=== PATIENT | male | born 1995 | race Caucasian/White ===

== ENCOUNTER 2017-12-21 13:20 | Emergency (ER) | payer OTHER ==
[~2017-12-21] VITALS: Ht 200.7 cm; Wt 119.1 kg
[2017-12-21] MEDS ORDERED: CHLORPROMAZINE200 MG PO (13:41)
[2017-12-21] MEDS ORDERED: CHLORPROMAZINE100 MG PO (13:41)
[2017-12-21] MEDS ORDERED: PROZAC40 MG PO (13:41)
[2017-12-21] MEDS ORDERED: ABILIFY MAINTE400 M1 IM (13:42)
== END 2017-12-21 15:01 | disposition home or self-care (01) ==
LOC: ED 13:20
DX: S63.044A Dislocation of carpometacarpal joint of right thumb, initial encounter (principal); S60.221A Contusion of right hand, initial encounter; J45.909 Unspecified asthma, uncomplicated; Z79.899 Other long term (current) drug therapy; W22.8XXA Striking against or struck by other objects, initial encounter
CPT/HCPCS: 73130; 99283

== ENCOUNTER 2019-08-27 05:35 | Day surgery (SDC) | payer OTHER ==
[~2019-08-27] VITALS: Ht 205.7 cm; Wt 136.1 kg
--- NOTE | ~2019-08-27 | OR ---
[facility] [address], [place] [address] Draft DATE OF OPERATION: 08/27/2019 SURGEON: Jack Washburn MD PREOPERATIVE DIAGNOSIS: Chronic dislocation carpometacarpal joint, right thumb. POSTOPERATIVE DIAGNOSIS: Chronic dislocation carpometacarpal joint, right thumb. PROCEDURE PERFORMED: CMC arthroplasty, right thumb. ANESTHESIA: General. SPECIMENS AND COMPLICATIONS: There were no specimens or complications. TOURNIQUET TIME: About 80 minutes. WHAT WAS DONE: The patient was taken to the operating room. After anesthesia was induced and airway secured, the right upper extremity was positioned, prepped and draped in a routine sterile fashion. A time-out was performed and after the successful completion of the time-out, the arm was exsanguinated with an Esmarch bandage. Pneumatic tourniquet about the upper arm was inflated to 250 mmHg pressure. We then made a slightly dorsal ulnar incision over the base of the thumb metacarpal because of its dislocated position. Skin was divided sharply. Subcutaneous tissue was bluntly spread. The radial artery was identified and gently retracted. We then used a #15 blade to open up the metacarpotrapezial joint. We then exposed the trapezium with sharp and blunt dissection and then removed it in a piecemeal fashion. Once we had removed the trapezium, the remaining articular surfaces appeared pristine. We then held the thumb in the corrected position. We made a small additional since incision on the radial aspect of the thumb at the base of the thumb metacarpal and through it, drilled the 1.1 guidewire for the mini TightRope. We checked position on both AP and lateral fluoroscopy and were happy with position in the thumb metacarpal. We then continued the guidewire through the base of the index metacarpal and allowed it to exit slightly dorsal ulnarly in the space between the 2nd and 3rd metacarpal. We then made a small incision around this and PATIENT NAME: ELIAN SORENSON OPERATIVE REPORT DATE OF : 89 REPORT #: [id number] PHYSICIAN: JACK WASHBURN MD PCP: NO PRIMARY CARE PHYSICIAN REPORT IS CONFIDENTIAL AND NOT TO BE RELEASED WITHOUT AUTHORIZATION [facility] [address], [place] [address] Draft carried it down to the bone to ensure that there was no compromise of the extensor tendon or any neurovascular issues. Once we were happy with the alignment and position of the guidewire, we used it to deliver the mini TightRope across the thumb metacarpal into the index metacarpal. We snugged it down to the bone through the radial incision at the base of the thumb metacarpal and ascertain its position fluoroscopically. We then gently tightened it, but not over tightened it and secured it with the other TightRope on the ulnar aspect of the index metacarpal. This gave us good alignment, good position, and excellent sabianism of the length. We then made two small transverse incisions and harvested a portion of the flexor carpi radialis tendon as there was no identifiable palmaris longus tendon. The flexor carpi radialis tendon was then turned into an anchovy with interrupted sutures of 2-0 FiberWire and was then placed in the void left by the excision of the trapezium. We then closed the capsule over the "anchovy" with interrupted sutures of 2-0 FiberWire. The remaining incisions were gently irrigated and closed. Local anesthetic was instilled around the incisions and the patient was placed in a bulky hand dressing along with a splint to hold the thumb in slight abduction and an extended position. Pneumatic tourniquet was released, and the fingers became pink and warm with a quick rapid capillary refill. The patient was awakened and taken to the recovery room and arrived in stable condition. Counts were correct and antibiotic protocols were followed. Jack Washburn MD WFB/MODL /[id number] Copies: ~ PATIENT NAME: ELIAN SORENSON OPERATIVE REPORT DATE OF : [birth year] REPORT #: [id number] PHYSICIAN: JACK WASHBURN MD PCP: NO PRIMARY CARE PHYSICIAN REPORT IS CONFIDENTIAL AND NOT TO BE RELEASED WITHOUT AUTHORIZATION
[~2019-08-27 05:35] MED LIST: ABILIFY MAINTE400 M1 IM; CHLORPROMAZINE100 MG PO; CHLORPROMAZINE200 MG PO; NAPROSYN500 MG PO; PROZAC40 MG PO; TUMS300 MG PO
--- NOTE | 2019-08-27 10:23 | NUR ---
08/27/19 1023 Alyssa Payne 1008 PT ARRIVED IN PACU NON RESPONSIVE TO NOXIOUS STIMULI WITH OPA IN PLACE. CHIN LIFT HELD BY RN. R ARM ELEVATED ON PILLOW.
[2019-08-27] MEDS ORDERED: NORCO 5-325 TA1 EACH PO (10:34)
--- NOTE | 2019-08-27 10:56 | NUR ---
PT IS BACK TO DS FROM PACU. PT IS TOLERATING SIPS OF MT. DEW. HE IS AGREEABLE TO TRYING CHIO CRACKERS. PT CAREGIVER AT BEDSIDE. CALL LIGHT WITHIN REACH. NO ADDITIONAL NEEDS AT THIS TIME.
--- NOTE | 2019-08-27 11:43 | NUR ---
UPON ENTERING ROOM TO CHECK ON PT, HE HAS SCOOTED HIMSELF OFF THE EDGE OF HIS BED AND IS STANDING WITH HIS HAND ON THE ARM RAIL, SWAYING. PT IS INSTRUCTED TO SIT BACK DOWN. HE STATES THAT HE IS STANDING SO HE CAN WAKE UP. HE IS EDUCATED THAT WITH THE MEDICATION HE GOT DURING SURGERY HE IS GOING TO FEEL SLEEPY AND NOT HAVE THE GREATEST BALANCE TODAY. CAREGIVER IS BACK IN THE ROOM. PT IS AGREEABLE TO STAY SEATED SO HE DOES NOT FALL. THIS CONVERSATION GOES ROUNDS FOR ABOUT 5 MINUTES.
--- NOTE | 2019-08-27 12:26 | NUR ---
PT AND CAREGIVER ARE GIVEN VERBAL DC INSTRUCTIONS, CAREGIVER VERBALIZES UNDERSTANDING. QUESTIONS ARE ANSWERED. PT IS TAKEN TO VEHICLE VIA WC BY VOLUNTEER.
--- NOTE | 2019-08-27 15:04 | NUR ---
CALVIN VILLANUEVA REQUESTED THAT I NOT VISIT PT. HE IS VERY AGGITAED AND SHE IS AFRAIND I MIGHT SEND PT OVER THE EDGE. WILL FOLLOW NEEDED
== END 2019-08-27 12:15 | disposition home or self-care (01) ==
LOC: OPS 05:35 → DS 05:35 → OPS 06:45 → DS 06:45 → OPS 12:15
PROVIDERS: Orthopaedic Surgery
PROC: 0RQS0ZZ Repair Right Carpometacarpal Joint, Open Approach (ICD-10-PCS; principal; 2019-08-27 06:45)
DX: M24.441 Recurrent dislocation, right hand (principal); F43.10 Post-traumatic stress disorder, unspecified; F84.0 Autistic disorder; K21.9 Gastro-esophageal reflux disease without esophagitis; G43.909 Migraine, unspecified, not intractable, without status migrainosus; F41.9 Anxiety disorder, unspecified; F32.9 Major depressive disorder, single episode, unspecified; J45.909 Unspecified asthma, uncomplicated; Z79.899 Other long term (current) drug therapy
CPT/HCPCS: 73140; C1713; J0690; J1100; J1885; J2405; J2704; J3010; J7121

== ENCOUNTER 2019-08-29 19:56 | Emergency (ER) | payer OTHER ==
[~2019-08-29] VITALS: Ht 205.7 cm; Wt 136.1 kg
--- OUTSIDE RECORDS SUMMARY | ~2019-08-29 | XMS ---
Demographics + + + | Address | [address] | | | [place] [address] | + + + | Home Phone | | + + + | Preferred Language | Unknown | + + + | Marital Status | S | + + + | Temple Affiliation | Unknown | + + + | Race | White | + + + | Ethnic Group | Not or | + + + Author + + + | Author | [facility] | + + + | Organization | [facility] | + + + | Address | [address] | | | [place] [address] | + + + | Phone | Unavailable | + + + Care Team Providers + + + + | Care Swing Tender Name | Role | Phone | + + + + Unavailable | Unavailable | + + + + Reason for Visit + + + | Reason For Visit Description | Start Date | + + + | General Notes | | + + + | | Chief Complaint: er f/u suicidal ideation | | | HPI Acute Pt is here today with | | | caregiver for er f/u 12/09/2015 suicidal | | | ideation- please read chart notes from | | | 12/09/2015 and chart note from DAVID | | | 12/10/2015. | | | .......................................... | | | .........................Dalila Lou | | | CCMA December 16, 2015 2:47 PM Pt | | | reports boredom and idle speculation about | | | killing himself. He enjoys thinking | | | about it. He does not have an active plan | | | but is quite ready to elaborat on a | | | number of ways that he thinks he could do | | | it if he decided to. Social | | | History Occupation: disabled Lives With: | | | professional care givers Lives At: | | | assisted Marital Status: single | | | Primary Language: Jordanian Use of Jordanian | | | Language: Fluent Review of Systems | | | General: No F/C/N/V. No ARENAS or visual | | | changes. No CP/SOB/KATZ/PND. No cough or | | | wheezing. Appetite is normal. No | | | unexpected wt gain/loss. Bowel function | | | normal with no diarrhea, constipation, | | | BRBPR, melena, or cramping. No | | | dysuria,frequency, incontinence, | | | hesitation, dribbling. No heat/cold | | | intolerance. Energy levels normal. No | | | rashes, bruising, or skin lesions. No | | | focal neurologic deficits, parasthesias, | | | changes in mentation or memory. | | | Psychiatric: History reveals positive for | | | anhedonia, suicidal ideation. Risk | | | Factors Tobacco Use: never smoker | | | Alcohol Use:never Drug Use: none Other | | | Risk Factors Caffeine use (drinks/day): 0 | | | Sun exposure: occasionally HX of MRSA: | | | No HIV high risk behavior: No | | | Nurse Intake Height: 79.5in. | | | Weight: 211 lbs. Pulse: 95(regular) | | | BMI: 23.56 Wt ch Pulse Oximetry: | | | O2 sat. at rest is 97% on RA BP #1: | | | 128/74 Position:sitting Site:left arm | | | Vitals entered by: Dalila Lou [facility] on | | | December 16, 2015 2:44 PM Health Risk | | | Screening 1. Do you now or have you ever | | | used tobacco? Never 2. How many times in | | | the past year have you had 5 or more | | | drinks in a day? | | | None 3. Do you | | | sometimes use drugs recreationally, | | | including marijuana without a Medical | | | Marijuana Card, or prescription drugs more | | | than they are prescribed for or just for | | | the way they make you feel? None In the | | | last two weeks have you been bothered by: | | | 4. A). Little interest or pleasure in | | | doing things? No B). Feeling down, | | | depressed or hopeless? No Physical | | | Exam General: Well developed, well | | | nourished, in no apparent distress Lungs: | | | Clear bilaterally with normal respiratory | | | effort. Heart: Regular rate and rhythm, | | | normal S1, S2, no murmurs, no rubs, no | | | gallops, no clicks. Extremities: No | | | clubbing, no cyanosis, no edema | | | Neurologic: No focal deficits Psych: Very | | | negative. Odd and tangential thought | | | patterns. Animated affect Lab | | | Results Review WBC: 7.87 10*3/mm3 | | | 12/10/2015 HGB: 16.6 g/dL 12/10/2015 | | | HCT: 46.8 % 12/10/2015 MCV: 88 fL | | | 12/10/2015 MCH: 31.1 pg 12/10/2015 | | | Plt: 251 10*3/mm3 12/10/2015 TSH: | | | 0.970 uIU/mL 08/29/2014 Free T3: | | | 3.08 pg/mL 08/29/2014 Free T4: 0.95 | | | ng/dL 08/29/2014 [place] BS: 97 mg/dL | | | 08/29/2014 Tot. Protein: 7.7 g/dL | | | 08/29/2014 Albumin: 4.5 g/dL | | | 08/29/2014 AST: 23 U/L 08/29/2014 | | | ALT: 44 U/L 08/29/2014 Cholesterol: | | | 149 mg/dL 08/29/2014 LDL: 102 mg/dL | | | 08/29/2014 High HDL: 35 mg/dL | | | 08/29/2014 Low Tri mg/dL | | | 08/29/2014 Na+: 139 MEQ/L mmol/L | | | 08/29/2014 K+: 4.0 MEQ/L mmol/L | | | 08/29/2014 Cl: 101 MEQ/L mmol/L | | | 08/29/2014 CO2: 30 MEQ/L mmol/L | | | 08/29/2014 Bun: 16 mg/dL 08/29/2014 | | | Cr: 0.9 mg/dL 08/29/2014 Ca2+: 9.6 | | | mg/dL 08/29/2014 Impression & | | | Plan Problem 1: MAJOR DEPRESSIVE | | | DISORDER- SINGLE EPISODE- SEVERE | | | W/PSYCHOTIC FEAT. (AJN92-B23.3) He has | | | poor insight and does not appear to have a | | | plan. In part he seems to like to | | | antagonaize his caregivers with suicidal | | | statements. There is however some very | | | real underlying psychiatric pathology and | | | I suspect some depression. He is | | | difficult to engage because of his odd | | | manner of interaction. Abilify 15 mg | | | tabs Start at 1/2 tablet in the morning X | | | 1 week then increase to 1 tab. | | | ........................ Med List: | | | (Reconciled) CHLORPHENIRAMINE MALEATE 4 | | | MG TABS (CHLORPHENIRAMINE MALEATE) 1 tab q | | | 8hrs prn seasonal allergies * TRIPLE | | | ANTIBIOTIC OINTMENT apply topically to | | | cuts and scrapes twice daily * OTC THROAT | | | LOZENGES lozenges as needed for sore | | | throat CHLORHEXIDINE GLUCONATE 0.12 % | | | SOLN (CHLORHEXIDINE GLUCONATE) Swish 1/2 | | | ounce for 30 seconds and rinse for the | | | first 7 days of the month IBUPROFEN 800 | | | MG TABS (IBUPROFEN) one tablet by mouth | | | every 8 hours prn dental pain | | | PROMETHAZINE HCL 25 MG TABS (PROMETHAZINE | | | HCL) 2 tabs at bedtime 1 tab two times per | | | day as needed nausea/vomiting * TYLENOL | | | 500MG CAP take 1 cap q 6 hrs prn pain or | | | fever > 100 ABILIFY 15 MG TABS | | | (ARIPIPRAZOLE) Start at 1/2 tablet in the | | | morning X 1 week then increase to 1 tab. | | | Allergy List: No Known Medication | | | Allergies. Meaningful Use Med List: | | | (Reconciled) Prescriptions: ABILIFY | | | 15 MG TABS (ARIPIPRAZOLE) Start at 1/2 | | | tablet in the morning X 1 week then | | | increase to 1 tab. #30[Tablet] x 1 | | | Entered and Authorized by: Yamilka Aden | | | Signed by: Yamilka Aden MD on | | | 12/16/2015 Method used: Electronically | | | to [facility]* (retail) | | | [address] [place] [address] | | | Ph: [phone] Fax: [phone] | | | Indications: UNSPEC PERVASIVE DVLPMENTL | | | D/O CURRNT/ACTV STATE;DEPRESSION RxID: | | | [id number] | + + + Assessments No information available. Chief Complaint + + + | Chief Complaint Description | Start Date | + + + | er f/u suicidal ideation | | + + + History of Past Illness No information available."
--- OUTSIDE RECORDS SUMMARY | ~2019-08-29 | XMS ---
Demographics + + + | Address | [address] | | | [place] [address] | + + + | Home Phone | | + + + | Preferred Language | Unknown | + + + | Marital Status | S | + + + | Methodist Affiliation | Unknown | + + + | Race | White | + + + | Ethnic Group | Not or | + + + Author + + + | Author | [facility] | + + + | Organization | [facility] | + + + | Address | [address] | | | [place] [address] | + + + | Phone | Unavailable | + + + Care Team Providers + + + + | Care Junior Systems Analyst Name | Role | Phone | + + + + Unavailable | Unavailable | + + + + Reason for Visit + + + | Reason For Visit Description | Start Date | + + + | General Notes | | + + + | | Impression & Plan Problem 1: | | | NAUSEA AND VOMITING (ICD-787.01) | | | (OZG74-G59.2) Status: New Onset | | | Promethazine hcl 25 mg tabs 2 tabs at | | | bedtime 1 tab two times per day as needed | | | nausea/vomiting | | | ........................ Problem 2: | | | INSOMNIA- UNSPECIFIED (ICD-780.52) | | | (YUV30-A80.00) Status: Inadequately | | | Controlled | | | ........................ Her | | | gastrointestinal symptoms are suspicious | | | for gallbladder dyskinesia. Start him on | | | promethazine. Check basic labs. | | | Promethazine and also be used to help him | | | sleep. Advised to stay with a low fat | | | diet Med List: (Reconciled) | | | CHLORPHENIRAMINE MALEATE 4 MG TABS | | | (CHLORPHENIRAMINE MALEATE) 1 tab q 8hrs | | | prn seasonal allergies IOPHEN-NR 100 | | | MG/5ML LIQD (GUAIFENESIN) 5-10ml q 4-6 | | | hrs PRN congestion * TRIPLE ANTIBIOTIC | | | OINTMENT apply topically to cuts and | | | scrapes twice daily * OTC THROAT LOZENGES | | | lozenges as needed for sore throat | | | PENLAC 8 % SOLN (CICLOPIROX) Apply to left | | | hallux nail once a day CHLORHEXIDINE | | | GLUCONATE 0.12 % SOLN (CHLORHEXIDINE | | | GLUCONATE) Swish 1/2 ounce for 30 seconds | | | and rinse for the first 7 days of the | | | month IBUPROFEN 800 MG TABS (IBUPROFEN) | | | one tablet by mouth every 8 hours prn | | | dental pain PROMETHAZINE HCL 25 MG TABS | | | (PROMETHAZINE HCL) 2 tabs at bedtime 1 tab | | | two times per day as needed | | | nausea/vomiting Meaningful Use Med | | | List: (Reconciled) Patient | | | Instructions 1) Promethazine 25 mg - 2 | | | tablets at bedtime and 1 tab two times per | | | day as needed nausea Chief | | | Complaint: nausea and sleep HPI Acute | | | Pt is here today with c/o nausea- he | | | states this happesn after every time he | | | eats x 2 months. Pt denies any other | | | symptoms. Pt has always had a hard time | | | falling to sleep. Pt states it normally | | | takes him 3 hours to fall asleep. Pt is | | | requesting something for sleep, but only | | | wants it to state PRN. | | | .......................................... | | | .........................Dalila Lou | | | CCMA November 18, 2015 3:46 PM | | | Surgical History Patient does not know | | | Family History: Family History | | | reviewed during this update. Family Hx | | | General Comments: unknown Social History | | | Occupation: disabled Lives With: | | | professional care givers Lives At: | | | usp Marital Status: single | | | Primary Language: Monegasque Use of Monegasque | | | Language: Fluent Review of Systems | | | General: No F/C Postprandial nausea no | | | vomiting No ARENAS or visual changes. No | | | CP/SOB/KATZ/PND. No cough or wheezing. | | | Appetite is normal. No unexpected wt | | | gain/loss. Bowel function normal with no | | | diarrhea, constipation, BRBPR, melena, or | | | cramping. No dysuria,frequency, | | | incontinence, hesitation, dribbling. No | | | heat/cold intolerance. Energy levels | | | normal. No rashes, bruising, or skin | | | lesions. No focal neurologic deficits, | | | parasthesias, changes in mentation or | | | memory. Insomnia No depression, | | | anxiety. Risk Factors Tobacco Use: | | | never smoker Alcohol Use:never Drug | | | Use: none Other Risk Factors Caffeine | | | use (drinks/day): 0 Sun exposure: | | | occasionally HX of MRSA: No HIV high | | | risk behavior: No Nurse Intake | | | Height: 79.5in. Weight: 212 lbs. | | | Pulse: 92(regular) BMI: 23.67 Wt ch | | | Pulse Oximetry: O2 sat. at rest is 97% | | | on RA BP #1: 122/90 Position:sitting | | | Site:left arm Vitals entered by: Dalila | | | [facility] on November 18, 2015 3:42 PM | | | Health Risk Screening 1. Do you now or | | | have you ever used tobacco? Never 2. How | | | many times in the past year have you had 5 | | | or more drinks in a day? | | | None 3. Do | | | you sometimes use drugs recreationally, | | | [...] | | nourished, in no apparent distress Head: | | | Normocephalic, atraumatic Lungs: Clear | | | bilaterally with normal respiratory | | | effort. Heart: Regular rate and rhythm | | | MSK: No deformity, no scoliosis noted of | | | thoracic or lumbar spine, joint ROM | | | grossly normal, normal gait and station. | | | Very tall ectomorphic Extremities: No | | | clubbing, no cyanosis, no edema | | | Neurologic: No focal deficits Psych: Very | | | negative. Ascerbic Lab Results | | | Review WBC: 7.0 10*3/mm3 08/29/2014 | | | HGB: 15.3 g/dL 08/29/2014 HCT: 44.1 | | | % 08/29/2014 MCV: 88.2 fL | | | 08/29/2014 MCH: 30.6 pg 08/29/2014 | | | Plt: 258 10*3/mm3 08/29/2014 TSH: | | | 0.970 uIU/mL 08/29/2014 Free T3: 3.08 | | | pg/mL 08/29/2014 Free T4: 0.95 ng/dL | | | 08/29/2014 [place] BS: 97 mg/dL | | | 08/29/2014 [...] Ca2+: 9.6 | | | mg/dL 08/29/2014 Prescriptions: | | | PROMETHAZINE HCL 25 MG TABS (PROMETHAZINE | | | HCL) 2 tabs at bedtime 1 tab two times per | | | day as needed nausea/vomiting | | | #120[Tablet] x 3 Entered and Authorized | | | by: Yamilka Aden MD Signed by: | | | Yamilka Aden MD on 11/18/2015 Method | | | used: Electronically to [facility] | | | [facility]* (retail) [address] [place] [address] | | | [place] [address] Ph: [phone] | | | Fax: [phone] Indications: NAUSEA AND | | | VOMITING;INSOMNIA, UNSPECIFIED RxID: | | | [id number] | + + + Assessments No information available. Chief Complaint + + + | Chief Complaint Description | Start Date | + + + | nausea and sleep | | + + + History of Past Illness No information available."
[~2019-08-29 19:56] MED LIST changes: +NORCO 5-325 TA1 EACH PO
== END 2019-08-29 21:23 | disposition home or self-care (01) ==
LOC: ED 19:56
DX: Z48.01 Encounter for change or removal of surgical wound dressing (principal)
CPT/HCPCS: 29125; 99283-25

== ENCOUNTER 2024-07-08 18:57 | Observation (INO) | payer MEDICAID ==
[~2024-07-08] VITALS: Ht 205.7 cm; Wt 149.0 kg
[~2024-07-08 18:57] MED LIST changes: -CHLORPROMAZINE100 MG PO; +CHLORPROMAZINE50 MG PO; +FLUOXETINE HCL20 M1 PO; -PROZAC40 MG PO; +SEVOFLURANE 250 ML BTL INH ONE; +TUMS200 MG PO; -TUMS300 MG PO
[2024-07-08] MEDS ORDERED: SODIUM CHLORIDE 0.9% 1,000 ML IV ONE (19:30)
[2024-07-08] MEDS ORDERED: ondansetron HCL 4 MG/2 ML VIAL IV ONE (19:30)
[2024-07-08] MEDS ORDERED: HYDROmorphone HCL 1 MG/ML SYR IV PRN ×2 (19:30→21:15)
[2024-07-08 19:42] LABS: RDW 14.1 (10.5-15.0)
[2024-07-08 19:47] LABS: BASOPHILS 0.3 % (0-2); EOSINOPHILS 0.1 % (0-6); HEMOGLOBIN 14.9 g/dL (12.0-18.0); MCHC 34.6 g/dl (30-36); MCV 86.8 fl (81-99); MONOCYTES 4.3 % (0-12); NEUTROPHILS 87.3 % (39-80); PLATELET COUNT 229 K/uL (140-440); RBC 4.96 M/ul (4.3-5.7)
[2024-07-08 19:56] LABS: ALBUMIN 3.9 g/dL (3.4-5.0); ALBUMIN/GLOBULIN RATIO 1.05 (1.1-2.4); ANION GAP 13.7 (7-21); BILIRUBIN, TOTAL 0.3 ng/dL (0.2-1.0); BUN/CREATININE RATIO 12.61 (6.0-28.6); CALCIUM 9.1 mg/dL (8.5-10.1); CREATININE, SERUM 1.11 mg/dL (0.70-1.30); POTASSIUM 3.7 mmol/L (3.5-5.1); PROTEIN, TOTAL 7.6 g/dL (6.4-8.2)
[2024-07-08] MEDS ORDERED: MAGNESIUM SULFATE 2 GM/50 ML BAG IV ONE (21:00)
[2024-07-08] MEDS ORDERED: ACETAMINOPHEN 325 MG TAB PO PRN (21:15)
[2024-07-08] MEDS ORDERED: ondansetron HCL 4 MG/2 ML VIAL IV PRN (21:15)
[2024-07-08] MEDS ORDERED: CEFTRIAXONE/SODIUM CHLORIDE 2 GM/100 ML PIGGYBACK IV SCH (21:15)
[2024-07-08] MEDS ORDERED: DEXTROSE 5% - LACTATED RINGERS 1,000 ML IV SCH (21:15)
[2024-07-08] MEDS ORDERED: ABILIFY15 MG PO (21:49)
[2024-07-08 22:06] VITALS: BP 130/68
--- NOTE | 2024-07-08 22:10 | NUR ---
ASSESSMENT AND VITAL SIGNS DONE. pt ARRIVED TO THE FLOOR VIA STRETCHER. pt ABLE TO GET UP AND WALK TO THE BED. BOWEL TONES ACTIVE. pt DENIES ANY NEEDS AT THIS TIME. CALL LIGHT WITHIN REACH.
[2024-07-08] MEDS ORDERED: ARIPiprazole 5 MG TAB PO SCH (22:47)
[2024-07-08] MEDS ORDERED: chlorproMAZINE HCL 25 MG TAB PO SCH (23:00)
--- NOTE | 2024-07-08 23:00 | NUR ---
MD ARIAS CALLED FOR pt NIGHT TIME MEDICATIONS. MD WU'D PATIENT HOME MEDS. NO OTHER NEEDS AT THIS TIME.
[2024-07-08] MEDS ORDERED: chlorproMAZINE HCL 25 MG TAB PO ONE (23:30)
[2024-07-09] VITALS (12 sets, daily range): BP systolic 113–156; BP diastolic 48–75
--- NOTE | 2024-07-09 01:20 | NUR ---
pt CALLED AND STATED HE COULDN'T SLEEP. THIS RN ASSESSED pt PAIN. pt C/O 01/25 PAIN. PRN PAIN MEDICATION ADMINISERED. pt DENIES ANY OTHER NEEDS AT THIS TIME CALL LIGHT WITHIN REACH.
--- NOTE | 2024-07-09 03:14 | NUR ---
AUTO CARE CENTER MANAGER PT OUT OF BED SO HE COULD PACE IN ROOM. HE STATED, "I AM TRYING TO GET DIZZY SO I CAN GO TO SLEEP. PT PACED FOR A FEW MINUTES THEN DECIDED TO SIT ON THE BED AND STARE AT THE WALL IN HOPES OF GETTING TIRED. STAFF LEFT PT WITH BED ALARM ON AND CALL LIGHT WITHIN REACH.
--- NOTE | 2024-07-09 04:00 | NUR ---
pt RESTING IN THE BED WITH EYES CLOSED. RR EVEN AND UNLABORED. CALL LIGHT WITHIN REACH.
[2024-07-09 05:40] LABS: BASOPHILS 0.4 % (0-2); EOSINOPHILS 0.1 % (0-6); HEMATOCRIT 39.3 % (35.0-50.0); HEMOGLOBIN 13.5 g/dL (12.0-18.0); LYMPHOCYTES 11.9 % (24-44); MCH 29.8 (27-36); MCHC 34.4 g/dl (30-36); MCV 86.6 fl (81-99); MONOCYTES 6.5 % (0-12); NEUTROPHILS 81.1 % (39-80); PLATELET COUNT 215 K/uL (140-440); RBC 4.53 M/ul (4.3-5.7); RDW 14.2 (10.5-15.0)
[2024-07-09 05:55] LABS: ALBUMIN 3.5 g/dL (3.4-5.0); ALBUMIN/GLOBULIN RATIO 1.09 (1.1-2.4); ANION GAP 9.8 (7-21); BILIRUBIN, TOTAL 0.6 ng/dL (0.2-1.0); BUN/CREATININE RATIO 10.28 (6.0-28.6); CALCIUM 8.9 mg/dL (8.5-10.1); CREATININE, SERUM 1.07 mg/dL (0.70-1.30); MAGNESIUM 2.1 mg/dL (1.8-2.4); POTASSIUM 3.8 mmol/L (3.5-5.1); PROTEIN, TOTAL 6.7 g/dL (6.4-8.2)
[2024-07-09] MEDS ORDERED: ACETAMINOPHEN 325 MG TAB PO PRN (06:45)
[2024-07-09] MEDS ORDERED: DEXTROSE 5% - LACTATED RINGERS 1,000 ML IV SCH (06:45)
[2024-07-09] MEDS ORDERED: PROCHLORPERAZINE EDISYLATE 10 MG/2 ML VIAL IV PRN ×2 (06:45→12:30)
[2024-07-09] MEDS ORDERED: ACETAMINOPHEN 650 MG SUPP PR PRN (06:45)
[2024-07-09] MEDS ORDERED: ondansetron HCL 4 MG/2 ML VIAL IV PRN ×2 (06:45→12:30)
[2024-07-09] MEDS ORDERED: MAGNESIUM SULFATE 2 GM/50 ML BAG IV ONE (06:45)
[2024-07-09] MEDS ORDERED: OXYCODONE HCL 5 MG TAB PO PRN (07:00)
--- NOTE | 2024-07-09 07:40 | NUR ---
REPORT RECIEVED FROM NIGHT RN - PT RESTING IN BED, RR EVEN AND UNLABORED. CALL LIGHT IN REACH.
[2024-07-09] MEDS ORDERED: chlorproMAZINE HCL 25 MG TAB PO SCH ×3 (08:00→21:00)
--- NOTE | 2024-07-09 08:18 | NUR ---
RN IN ROOM TO COMPLETE ASSESSMENT. PT RATES PAIN 9/10 BUT VAUGUE WITH DESCRIPTION AND LOCATION. PRN DILAUDID ADMINISTERED. IV SITE PATENT. PT REFUSES HOME PO MEDS THIS AM R/T BEING TOLD HE CAN NOT HAVE ANYTHING BY MOUTH. OTHERWISE ASSESSMENT BENIGN. CALL LIGHT IN REACH.
[2024-07-09] MEDS ORDERED: PANTOPRAZOLE SODIUM 40 MG/10 ML VIAL IV SCH (09:00)
[2024-07-09] MEDS ORDERED: ENOXAPARIN SODIUM 40 MG/0.4 ML SYR SUB-Q SCH (09:00)
[2024-07-09] MEDS ORDERED: CEFTRIAXONE/SODIUM CHLORIDE 2 GM/100 ML PIGGYBACK IV SCH (09:00)
[2024-07-09] MEDS ORDERED: VITAMIN D21250 MCG PO (09:51)
[2024-07-09] MEDS ORDERED: CHLORPROMAZINE200 MG PO (09:52)
--- NOTE | 2024-07-09 09:53 | NUR ---
MED REC COMPLETE
--- NOTE | 2024-07-09 10:00 | NUR ---
RN IN ROOM TO ADMINISTER ABX AND PREP FOR OR. EXTENSIVE EDUCATION PROVIDED TO PT REGARDING SURGERY AND WHAT TO EXPECT/PREPARE. PT NOTED TO BE INCREASINGLY ANXIOUS. PARTICULAR AND GONZALEZ IN PREFERENCES OF CARES. WIPE DOWN COMPLETE AND CHART READY. NEW GOWN AND LINENS, BLADDER EMPTY. PT DENIES FURTHER NEEDS AT THIS TIME. CALL LIGHT IN REACH.
--- NOTE | 2024-07-09 10:03 | NUR ---
[place] CLIN[place] [facility] [place] MEETS FOR APPENDECTOMY, WITHOUT ABSCESS OR PERITONITIS OBS: 07/08/24 @ 2103 ORDER MATCHES REG NO AUTH PER MEDICAID REQUIRED PLAN TO RETURN TO PENITENTIARY 07/10/24
--- NOTE | 2024-07-09 10:48 | NUR ---
VISITED DURING SPIRITUAL CARE ROUNDS. PT APPEARED OT BE SLEEPING. DID NOT DISTURB. PROVIDED PRAYER.
--- NOTE | 2024-07-09 11:07 | CONS ---
[facility] [address], [place] [address] Signed DATE OF CONSULTATION: 07/09/2024 CHIEF COMPLAINT: Right lower quadrant abdominal pain. HISTORY OF PRESENT ILLNESS: Elian is a 28-year-old gentleman, who has Asperger's disease associated with developmental delay and an extra Y chromosome. He lives here in [place], [place] at a long term for adults. He had developed generalized abdominal pain yesterday and had emesis x1. He now has pain localized in the right lower quadrant. He was brought to the local emergency room. He is not systemically ill or toxic and his vital signs are fine. He is tender in the right lower quadrant. White count was elevated. The CT scan of abdomen and pelvis shows he has a 15 mm dilated appendix with some appendicolith along with some periappendiceal inflammation. I had been asked to admit him as a general surgeon corporate communications associate last night. He received Rocephin and Flagyl and some IV fluids. According to the staff, he is able to give consent for himself. PAST MEDICAL HISTORY: Asthma, extra Y chromosome, Asperger's disease and developmental delay. PAST SURGICAL HISTORY: Includes upper endoscopy when he was around 3 years old to remove a flower from his stomach and right hand surgery. SOCIAL HISTORY: He does not smoke or drink. He lives at a local long term and one of his caregivers is Chase Mckeon at [phone]. He does not seem to have a primary care provider, but he talks about [facility] for his psych medications. He gets them through the [facility] over in [place], [place] FAMILY HISTORY: He is not able to give me any family history. REVIEW OF SYSTEMS: He was able to tell me about removing the flower from his stomach and indeed there is no surgical scar in his abdomen. MEDICATIONS: He takes fluoxetine 40 mg p.o. daily. He takes chlorpromazine 50 mg t.i.d., naproxen 500 mg p.r.n., calcium carbonate p.r.n. for heartburn and he takes Abilify 15 mg p.o. at bedtime. PHYSICAL EXAMINATION: Electronically Signed By: ESMER ARIAS MD 07/09/24 1107 PATIENT NAME: ELIAN SORENSON CONSULTATION DATE OF : [birth year] REPORT #: [id number] PHYSICIAN: ESMER ARIAS MD PCP: NO PRIMARY CARE PHYSICIAN REPORT IS CONFIDENTIAL AND NOT TO BE RELEASED WITHOUT AUTHORIZATION [facility] [address], [place] [address] Signed VITAL SIGNS: His blood pressure is 156/71, his heart rate is 88, his respiratory rate is 20, his temperature is 98.9. He is 97% on room air. He is 6 feet 9 inches tall. He is 149 kg with a body mass index of 35. GENERAL: Elian is a 28-year-old gentleman lying in the left lateral decubitus position, asleep in his hospital bed. Our nurse Sonia is with us. He was easily awakened, interactive and alert. He is in no acute distress. He is not systemically ill or toxic. LUNGS: Clear to auscultation bilaterally. HEART: Regular rate and rhythm without murmurs. ABDOMEN: Mild to moderately protuberant at baseline, but it is soft and he is tender in the right lower quadrant. LABORATORY DATA: His white blood count is 13.1, hemoglobin 13 neutrophils 81. His electrolytes are unremarkable except the magnesium slightly low at 1.7, albumin is 3.5. Liver function tests are negative. CT scan of abdomen and pelvis shows the 15 mm dilated appendix with multiple stones and then some periappendiceal inflammation. ASSESSMENT AND PLAN: Elian is a 28-year-old gentleman with Asperger's disease. He is presenting with acute appendicitis. I brought a brochure today for him to look at. He does not seem to but I told him he could look at the pictures and he was not much interested this morning. We did talk about the location and function of the appendix. We discussed laparoscopic versus open appendectomy. He understands he will be asleep for the surgery. We reviewed the expected intraop and postop course. There is risk including, but not limited to bleeding, infection, scarring, change in contour of the skin, damage to bowel, appendiceal stump leak, postoperative intra-abdominal abscess, incisional hernias and other unforeseen comorbidities. He has expressed understanding and would like to proceed. Esmer Arias MD ALB/MODL /[id number] cc: [facility] Esmer Arias MD Electronically Signed By: ESMER ARIAS MD 07/09/24 1107 PATIENT NAME: ELIAN SORENSON CONSULTATION DATE OF : [birth year] REPORT #: [id number] PHYSICIAN: ESMER ARIAS MD PCP: NO PRIMARY CARE PHYSICIAN REPORT IS CONFIDENTIAL AND NOT TO BE RELEASED WITHOUT AUTHORIZATION [facility] [address] [place], [place] [address] Signed Copies: ESMER ARIAS MD ~ Electronically Signed By: ESMER ARIAS MD 07/09/24 1107 PATIENT NAME: ELIAN SORENSON CONSULTATION DATE OF : [birth year] REPORT #: [id number] PHYSICIAN: ESMER ARIAS MD PCP: NO PRIMARY CARE PHYSICIAN REPORT IS CONFIDENTIAL AND NOT TO BE RELEASED WITHOUT AUTHORIZATION
[2024-07-09] MEDS ORDERED: LIDOCAINE HCL 4% 5 ML AMP ONE (11:17)
[2024-07-09] MEDS ORDERED: LACTATED RINGER'S 1,000 ML IV ONE ×2 (11:17→12:16)
[2024-07-09] MEDS ORDERED: propofoL 200 MG/20 ML VIAL ONE (11:17)
[2024-07-09] MEDS ORDERED: MIDAZOLAM HCL 2 MG/2 ML VIAL ONE (11:17)
[2024-07-09] MEDS ORDERED: FAMOTIDINE 20 MG/ 2 ML VIAL ONE (11:17)
[2024-07-09] MEDS ORDERED: SUGAMMADEX SODIUM 200 MG/2 ML ML ONE ×2 (11:17→12:51)
[2024-07-09] MEDS ORDERED: ROCURONIUM BROMIDE 50 MG/5 ML SYR ONE ×2 (11:17→12:12)
[2024-07-09] MEDS ORDERED: ondansetron HCL 4 MG/2 ML VIAL ONE (11:17)
[2024-07-09] MEDS ORDERED: DEXAMETHASONE SOD PHOS 4 MG/ML VIAL ONE ×2 (11:17→11:38)
[2024-07-09] MEDS ORDERED: METOCLOPRAMIDE HCL 10 MG/2 ML SDV ONE (11:17)
[2024-07-09] MEDS ORDERED: KETOROLAC TROMETHAMINE 30 MG/ML VIAL ONE (11:17)
[2024-07-09] MEDS ORDERED: fentaNYL citrate 100 MCG/2 ML VIAL ONE (11:17)
[2024-07-09] MEDS ORDERED: SUCCINYLCHOLINE IN 0.9% NACL 200 MG/10 ML SYRINGE ONE (11:17)
--- NOTE | 2024-07-09 11:20 | NUR ---
Attempted to see pt. He is gone to surgery. Will fu tomorrow.
[2024-07-09] MEDS ORDERED: ePHEDrine sulfate 50 MG/ML AMP ONE (11:45)
--- NOTE | 2024-07-09 11:55 | NUR ---
PT OFF THE FLOOR TO OR
[2024-07-09] MEDS ORDERED: MORPHINE SULFATE 10 MG/ML VIAL IV PRN ×2 (12:30)
[2024-07-09] MEDS ORDERED: droPERidol 5 MG/2 ML VIAL IV PRN ×2 (12:30)
[2024-07-09] MEDS ORDERED: METOCLOPRAMIDE HCL 10 MG/2 ML SDV IV PRN (12:30)
[2024-07-09] MEDS ORDERED: fentaNYL citrate 50 MCG/ML SDV IV PRN ×2 (12:30)
[2024-07-09] MEDS ORDERED: NALOXONE HCL 0.4 MG SYR IV PRN ×2 (12:30)
[2024-07-09] MEDS ORDERED: IBLOOD GLUCOSE TEST STRIP 1 EA TEST VI PRN ×2 (12:30)
[2024-07-09] MEDS ORDERED: HYDROmorphone HCL 2 MG/ML VIAL IV PRN (13:30)
--- NOTE | 2024-07-09 14:21 | NUR ---
PT BACK TO ROOM FROM OR - PT ALERT AND ORIENTED. RATES PAIN 2/10, NO NAUSEA. WATER AND JELLO PROVIDED WITH EDUCATION TO ADVANCE SLOWLY. CPOX AND SCD'S IN PLACE. VS STABLE. LAP SITES X3 C/D/I. CALL LIGHT IN REACH, STEP MOM AT BEDSIDE.
--- NOTE | 2024-07-09 15:20 | NUR ---
07/09/24 1520 Sheets,Argenis 1317 PT ARRIVED TO PACU WITH NASAL AND ORAL AIRWAY IN PLACE, 15L VIA MASK AND PERIOD OF APNEA NOTED. JAW THRUST USED TO MAINTAIN AIRWAY. 1318 O2 DECREASED TO 88% AND HOB INCREASED. SUCTION USED AND PT STARTS TO COUGH, PT EYES REMAIN CLOSED AND PT UNABLE TO FOLLOW COMMANDS. PT STARTS REACHING UP FOR HIS FACE. BATON TEACHER AND RING BARKER OPERATOR AT BEDSIDE HELPING THIS RN PROTECT PT FACE AND ARMS. 1319 PT OPENS MOUTH AND ORAL AIRWAY REMOVED. RNS AND RING BARKER OPERATOR TRY TO REORIENT PT TO PACU, PT EYES REMAIN CLOSED AND MOVING AROUND IN BED. 1321 PT EYES OPEN AND PT CONTINUES TO BE RESTLESS. NASAL AIRWAY REMOVED, PT REACHING FOR HIS FACE AND REMOVES HIS MASK, RN REORIENTING PT TO PACU AND RETURNS MASK TO HIS HIS. PT RESTING BACK IN BAD AND PERIOD OF APNEA NOTED. 1322 DEEP BREATHING ENCOURAGED WITH TACTILE STIMULI AND PT WAKES AND ABLE TO DEEP BREATHE WHEN ASKED. 1328 PT GRABBING AT HIS MASK, O2 REMOVED. PT GRABBING AT HIS PENIS AND REPORTS "YES" WHEN ASKED ABOUT NEEDING TO VOID. URINAL PLACED WITH RNS HELPS AND RN ENCOURAGES PT TO VOID. PT FALLS BACK TO SLEEP. 1335 PT UNABLE TO VOID, EDUCAITON GIVEN ABOUT MERIDA DURING PROCEDURE AND URINAL REMOVED. PT ASLEEP OFF AND ON. O2 SAT LOW 90S. 1345 PT WAKES AND ASKED FOR URINAL AND PLACES URINAL HIMSELF, RN CONTINUES TO REINFORCE TEACHING ABOUT MERIDA AND VOIDING. PT REPORTS NAUSEA BUT "WONT VOMIT." PT REMOVED HIS PILLOW AND HOB INCREASED PER REQUEST. PT REFUSED ICE TO BE PLACED ON ABD. 1410 PT RETURNED TO ROOM WITH FAMILY AT BEDSIDE. BED PLUGGED IN. URINAL REMAINS IN PLACE PER PT REQUEST AND RN AWARE. SURGICAL SITES CDI AND PT REPORTS NAUSEA IS "BETTER" AND PAIN IS TOLERABLE. PT SITTING IN HIGH FOLWERS AND WITH CALL LIGHT WITHIN REACH. ALL QUESTIONS ASNWERED. O2 SAT REMAINS 90 OR ABOVE AND RN AWARE.
--- NOTE | 2024-07-09 15:21 | NUR ---
POST OP VS ASSESSED. PT SLEEPING AND GRIMACED WITH MOVEMENT. STATES HE IS SLIGHTLY MORE PAINFUL BUT DECLINED NEEDING ANYTHING.
--- NOTE | 2024-07-09 16:00 | NUR ---
OTHER RN IN ROOM TO ANSWER CALL LIGHT - PT NOTED TO BE ANXIOUS AND RESTLESS IN ROOM. CPOX AND IV FLUIDS DC'D FROM PT TO DECREASE STIMULATION. PT PROVIDED PERSONAL BELONGINGS AND DEESCILATION TECHNIQUES USED. DR. ARIAS UPDATED AND ORDERS RECEIVED TO ADVANCE DIET AND WILL ROUND ON PT TO ASSESS DC PLAN.
--- NOTE | 2024-07-09 16:45 | NUR ---
RN ROUNDING ON PT - PT SITTING ON EDGE OF BED VISITING WITH STEP MOTHER. PT EATING CRAKERS AND SOUP WITHOUT NAUSEA. LAP SITE DRESSINGS C/D/I. PT CALM BUT EXPRESSES HE HOPES HE CAN GO HOME. INFORMED PT THAT DR. ARIAS WILL COME TALK TO HIM SOON ABOUT DISCHARGE PLAN. PT DENIES NEEDS AT THIS TIME.
--- NOTE | 2024-07-09 19:20 | NUR ---
REPORT RECEIVED FROM TERRANCE SIMPSON. BOARD UPDATED. pt SITTING ON THE EDGE OF THE BED. pt C/O 10/28 PAIN. PRN PAIN MEDICATION ADMINISTERED. NO OTHER NEEDS AT THIS TIME. CALL LIGHT WITHIN REACH.
--- NOTE | 2024-07-09 20:10 | NUR ---
ASSESSMENT AND VITAL SIGNS DONE. DRESSING INTACT. MODERATE AMOUNT OF DRAINAGE UNDER THE TAPE. BOWEL TONES ACTIVE. pt DENIES ANY NEEDS AT THIS TIME. CALL LIGHT WITHIN REACH. IV ASSESSED, WNL.
--- NOTE | 2024-07-09 22:15 | NUR ---
pt RESTING IN THE BED WITH EYES CLOSED. RR EVEN AND UNLABORED. CALL LIGHT WITHIN REACH.
--- NOTE | 2024-07-10 00:45 | NUR ---
pt SITTING ON THE EDGE OF THE BED. pt REQUESTED SNACK AT THIS TIME. JELLO PROVIDED. pt DENIES ANY OTHER NEEDS AT THIS TIME. CALL LIGHT WITHIN REACH.
[2024-07-10 01:44] VITALS: BP 114/58
--- NOTE | 2024-07-10 01:50 | NUR ---
VITAL SIGNS DONE AND ASSESSMENT DONE. pt DENIES ANY NEEDS AT THIS TIME. DRESSING INTACT. CALL LIGHT WITHIN REACH. pt DENIES ANY PAIN AT THIS TIME.
[2024-07-10 01:53] VITALS: BP 114/58
--- NOTE | 2024-07-10 02:48 | NUR ---
pt RESTING IN THE BED WITH EYES CLOSED. RR EVEN AND UNLABORED. CALL LIGHT WITHIN REACH.
--- NOTE | 2024-07-10 06:15 | OR ---
[facility] [address], [place] [address] Signed DATE OF OPERATION: 07/09/2024 SURGEON: Esmer Arias MD PREOPERATIVE DIAGNOSIS: Acute appendicitis. POSTOPERATIVE DIAGNOSIS: Acute suppurative appendicitis. PROCEDURE: Laparoscopic appendectomy (prolonged and difficult of 1 hour). ESTIMATED BLOOD LOSS: Minimal. FINDINGS: Elian is a large man at 6 foot 9 inches tall and 149 kg. He indeed had suppurative appendicitis. The appendix traveled posteriorly down to the cecum. I had to free down the white line of Toldt at the cecum and correction up the right colon in order to rotate the cecum up and even that was difficult. He had quite a bit of intra-abdominal fat. It took a few minutes to clear off the base of the appendix. We had to go very slowly and carefully. We did see the appendiceal artery and we did place two clips across it as well. This case took about twice as long as normal. In that way, it was prolonged and difficult. INDICATIONS: Elian is a 28-year-old gentleman at 6 foot 9 inches tall and 149 kg with a body mass index of 35. He lives in an adult care home here in [place], [place] due to his Asperger's disease and his extra Y chromosome. He does have some developmental delay. He started with some generalized abdominal pain yesterday that localized to the right lower quadrant. He had an emesis. He came to the emergency room. His vital signs were fine but he was tender in the right lower quadrant. White count was elevated. CT scan of the abdomen and pelvis showed the 15 mm dilated appendix with several appendicoliths and periappendiceal inflammation. I have been asked to admit him last night as general surgeon on-call. He did receive IV fluids and Rocephin and Flagyl along with some pain control. I had met with Elian this morning and I brought with me a brochure. He said he was not interested in reading, but we did look at the pictures. He understands the location and function of the appendix. We discussed laparoscopic versus open appendectomy. There is risk to the surgery including, but not limited to bleeding, Electronically Signed By: ESMER ARIAS MD 07/10/24 0615 PATIENT NAME: ELIAN SORENSON OPERATIVE REPORT DATE OF : 95 REPORT #: [id number] PHYSICIAN: ESMER ARIAS MD PCP: NO PRIMARY CARE PHYSICIAN REPORT IS CONFIDENTIAL AND NOT TO BE RELEASED WITHOUT AUTHORIZATION [facility] [address] [place] [address] Signed infection, scarring, change in contour of the skin, damage to bowel, appendiceal stump leak, postoperative intra-abdominal abscess, incisional hernias and other unforeseen comorbidities. He had expressed understanding and wished to proceed. PROCEDURE IN DETAIL: Elian was taken in the operating room and placed in the supine position under general endotracheal tube anesthesia. He was already on preoperative antibiotics along with subcutaneous Lovenox. SCDs were in place. A Caballero catheter was inserted with return of clear yellow urine without difficulty. He was prepped and draped in usual sterile fashion. We placed our trocars in their usual positions under direct visualization the camera without difficulty. Upon inspection, we found that the appendix traveled down to the cecum and was quite posterior. He has a lot of intra-abdominal fat and we simply could not visualize the area well enough to proceed. We had to free up the white line of Toldt and some adhesions lateral to the cecum about correction up the right colon. That allowed us to rotate the cecum up along the base of the appendix. Even then it was difficult. As we dissected off the base of the appendix, we did see the appendiceal artery and we put two clips across that with good hemostasis. We then divided the base of the appendix from the cecum with our linear stapler. After this, we used the vascular load to divide the mesoappendix with good hemostasis as well. The appendix was placed into an EndoCatch bag and we took it out through the right subcostal trocar site. He is so tall and so large, we had to use a long Pean clamp to spread open the trocar site a bit to get his appendix out. Therefore, we used two 0 Vicryl sutures passed independently to close the fascia of the right subcostal trocar site. After this, all the gas was allowed to escape and remaining two trocars were removed. We closed the supraumbilical trocar site with interrupted simple and [id number] 0-Vicryl sutures. We injected local anesthetic into all three trocar sites. Each trocar site was irrigated and suctioned out until clear. We closed the skin and dermis of each trocar site with interrupted 3-0 subcuticular Monocryl sutures. Dry gauze and tape was applied to all three incisions. The Caballero catheter was then removed without difficulty. We transferred Elian israel to our hospital bed on the and he was weaned from his anesthesia, extubated in the OR, and taken to recovery room in stable condition. MD BRINDA Dalh/PRASANNAL /[id number] Electronically Signed By: ESMER ARIAS MD 07/10/24 0615 PATIENT NAME: ELIAN SORENSON OPERATIVE REPORT DATE OF : 95 REPORT #: [id number] PHYSICIAN: ESMER ARIAS MD PCP: NO PRIMARY CARE PHYSICIAN REPORT IS CONFIDENTIAL AND NOT TO BE RELEASED WITHOUT AUTHORIZATION [address] [address] Signed cc: [facility] Esmer Arias MD Copies: ESMER ARIAS MD ~ Electronically Signed By: ESMER ARIAS MD 07/10/2415 PATIENT NAME: ELIAN SORENSON OPERATIVE REPORT DATE OF : 95 REPORT #: [id number] PHYSICIAN: ESMER ARIAS MD PCP: NO PRIMARY CARE PHYSICIAN REPORT IS CONFIDENTIAL AND NOT TO BE RELEASED WITHOUT AUTHORIZATION
[2024-07-10 06:27] VITALS: BP 129/68
[2024-07-10 06:53] VITALS: BP 129/68
--- NOTE | 2024-07-10 07:19 | NUR ---
REPORT RECEIVED FROM [employer] LEGAL SECRETARY RN NANCY. PATIENT IS SITTING ON THE EDGE OF BED AND RESPIRATIONS ARE EVEN AND UNLABORED. CALL LIGHT AND PERSONAL BELONGINGS ARE WITHIN REACH.
[2024-07-10] MEDS ORDERED: OXYCODONE HCL5 MG PO (08:12)
--- NOTE | 2024-07-10 08:15 | NUR ---
0800 AND 0900 MEDICATIONS ADMINISTERED PER THE EMAR. FULL ASSESSMENT COMPLETE AND DOCUMENTED IN THE CHART. PATIENT IS ALERT AND ORIENTED TIMES FOUR. PATIENT IS INDEPENDENT IN THE ROOM. PATIENT IS ON ROOM AIR AND LUNG SOUNDS ARE CLEAR BILATERALLY. CARDIAC WITH NORMAL S1 AND S2 ON AUSCULTATION. RADIAL PULSES ARE STRONG BILATERALLY. CAPILLARY REFILL IN THE UPPER AND LOWER EXTREMITIES IS LESS THAN 3 SECONDS BILATERALLY. PATIENT IS ON A REGULAR DIET AND BOWEL TONES ARE ACTIVE IN ALL FOUR QUADRANTS. ABDOMEN IS TENDER ON PALPATION AND ABDOMEN IS DISTENDED. SENSATION IS INTACT AND PATIENT HAS NO COMPLAINTS OF NUMBNESS AND TINGLING. PATIENT RATED PAIN 0-1 OUT OF 10. PATIENT IS NOT REQUESTING PAIN MEDICATIONS AT THIS TIME. SKIN WITH 3 LAP SITES NOTED AND ALL ARE OPEN TO AIR WITH DRY SEROSANGUINOUS DRAINAGE. IV SITE IN THE LEFT FOREARM FLUSHED WITH 10 ML NORMAL SALINE AND IS SALINE LOCKED. IV DRESSING IS CLEAN, DRY, AND INTACT. PATIENT IS EAGER TO LEAVE BUT STATED NO FURTHER NEEDS AT THIS TIME. CALL LIGHT AND PERSONAL BELONGINGS ARE WITHIN REACH.
--- NOTE | 2024-07-10 08:31 | NUR ---
RN GAVE REPORT TO KARAN AT THE MONDAY HOUSE. KARAN STATED TO PLEASE GET A TAXI FOR THE PATIENT HE IS THE ONLY ONE IN HOUSE. KARAN STATED NO FURTHER QUESTIONS OR CONCERNS. CALL ENDED.
[2024-07-10] MEDS ORDERED: FLUOXETINE HCL 20 MG CAP PO SCH (09:00)
[2024-07-10] MEDS ORDERED: PANTOPRAZOLE SODIUM 40 MG TABEC PO SCH (09:00)
[2024-07-10 09:19] VITALS: BP 122/65
[2024-07-10 10:00] VITALS: BP 122/65
--- NOTE | 2024-07-10 10:41 | DS ---
[facility] [place] [facility] [address] [place], [place] [address] Signed ADMISSION DATE: 07/09/2024 DISCHARGE DATE: 07/10/2024 FINAL DIAGNOSIS: Acute appendicitis. PROCEDURE: Laparoscopic appendectomy. HISTORY OF PRESENT ILLNESS: Elian is a 28-year-old gentleman. He was born with an extra Y chromosome and has Asperger's disease along with developmental delay. He lives at a local residential. He developed generalized abdominal pain that localized to his right lower quadrant. He had an emesis. He was brought to our local emergency room for evaluation. His vital signs were fine, but he was tender in the right lower quadrant. White blood cell count was elevated. CT scan confirmed his 15 mm dilated appendix with multiple appendicoliths. He also had some periappendiceal inflammation. I was asked to admit him as a general surgeon on-call. He was given IV fluids, Rocephin and Flagyl and pain control. HOSPITAL COURSE: I met with Elian early in the morning. We reviewed the above findings. I brought a brochure on appendicitis by dull think he was interested in reading much. We looked at the pictures and I reviewed with him the location and function of the appendix. We discussed the surgery. He went to surgery later that morning and underwent a laparoscopic appendectomy. He did well both intraop and postop. He was anxious to return to his residential. He was up walking around. We disconnected his IV fluids and we advanced his diet quite readily. This morning, he is passing gas and that is confirmed by our nursing staff. His abdomen is protuberant at baseline and he feels it is about the same. His only complaint is a little incisional pain at the trocar site below the right subcostal margin. That is quite expected. He has no nausea or vomiting and he is all the way up to a soft diet. We have him back on his usual medications and overall seems to be doing quite well. He was asking again if he can go home today. We were fortunate that his stepmom who has not seen him since about age 13 was able to come 7 hours from [facility] and visit with him before surgery and after surgery and she had to return to the [facility]. DISCHARGE PLANS AND MEDICATIONS: Elian will be returning to his residential later today. He is welcome to resume all his chronic medications as he has done here in the hospital. He has been using Tylenol with good results for pain. We did write for oxycodone immediate release 10 mg tablets one p.o. q.6 hours p.r.n. for severe postoperative pain. We will dispense 15 tablets with Electronically Signed By: ESMER GRIFFIN MD 07/10/24 1041 PATIENT NAME: ELIAN SORENSON DISCHARGE SUMMARY DATE OF : 95 REPORT #: [id number] PHYSICIAN: ESMER GRIFFIN MD PCP: NO PRIMARY CARE PHYSICIAN REPORT IS CONFIDENTIAL AND NOT TO BE RELEASED WITHOUT AUTHORIZATION [address] [address] Signed no refills. He also has naproxen available to him apparently at the residential. He will continue a regular diet. He is welcome to perform his activities of daily living including walking up and down stairs and showering and bathing as usual. He is not to do any heavy pushing, pulling, or lifting over about 20 pounds. I will see him back in my office in about 7 to 14 days for followup. In the meantime, he will leave his incisions open to air and shower and bathe as usual. He has expressed understanding and agrees with the above plan. Esmer Griffin MD ALB/MODL /[id number] cc: Esmer Griffin MD [facility] Copies: ESMER GRIFFIN MD ~ Electronically Signed By: ESMER GRIFFIN MD 07/10/24 1041 PATIENT NAME: ELIAN SORENSON DISCHARGE SUMMARY DATE OF : [birth year] REPORT #: [id number] PHYSICIAN: ESMER GRIFFIN MD PCP: NO PRIMARY CARE PHYSICIAN REPORT IS CONFIDENTIAL AND NOT TO BE RELEASED WITHOUT AUTHORIZATION
--- NOTE | 2024-07-15 22:38 | PATH ---
[facility] [address] [place], [place] [address] Signed SPECIMEN(S): A APPENDIX SPECIMEN SOURCE: A. APPENDIX CLINICAL HISTORY: Appendicitis, laparoscopic appendectomy FINAL PATHOLOGIC DIAGNOSIS: Appendix, appendectomy: - Acute appendicitis with periappendicitis. TWK MICROSCOPIC EXAMINATION: Histologic sections of all submitted blocks are examined by light microscopy. These findings, together with the gross examination, support the pathologic diagnosis. GROSS DESCRIPTION: The specimen, labeled and designated "Layne Hutchinson, appendix," is received in formalin and consists of Specimen: Appendix with mesoappendix. Dimensions: 7.6 x 1.2 cm. Serosa: [place]-peraza focally hemorrhagic with white-peraza exudate measuring along the length of specimen. Defect: Not grossly identified. Inking: Staple line is inked Blue. Mucosa: [place]-peraza dilated filled with dark brown soft material. Fecalith: Not grossly identified. Additional: No grossly identifiable lesions. Buffer Machine sections are submitted in (A1). ALINA (under the direct supervision of a pathologist) The Gross Description was prepared using a voice recognition system. The report was reviewed for accuracy; however, sound-alike word errors, addition and/or deletions may occur. If there is any question about this report, please contact Client Services. ADDITIONAL NOTES: Immunohistochemical and/or in situ hybridization studies if performed in this case included appropriate positive controls that reacted as expected. This test was developed and its performance PATIENT NAME: ELIAN HUTCHINSON [facility] PATHOLOGY DATE OF : 95 REPORT #: [id number] PHYSICIAN: DENIS PATHOLOGY PCP: NO PRIMARY CARE PHYSICIAN REPORT IS CONFIDENTIAL AND NOT TO BE RELEASED WITHOUT AUTHORIZATION [facility] [address] [place], [place] [address] Signed characteristics determined by [facility]. It has not been cleared or approved by the U.S. Food and Drug Administration. The FDA has determined that such clearance or approval is not necessary. This test is used for clinical purposes. It should not be regarded as investigational or for research. [facility] is certified under the Clinical Laboratory Improvement Amendments of 1988 (CLIA) as qualified to perform high complexity clinical laboratory testing. PERFORMING LABORATORY: Technical component was performed by [facility], [address] [place] [id number] (CLIA# [id number]). Professional interpretation was performed by [facility], [address] [place] [address], [facility] Floor Room [address] [place] [address] (CLIA#: [id number]). Diagnostician: Marvin Guerra MD Pathologist Electronically Signed 07/15/2024 Copies: ~ PATIENT NAME: ELIAN HUTCHINSON PATHOLOGY DATE OF : [birth year] REPORT #: [id number] PHYSICIAN: DENIS PATHOLOGY PCP: NO PRIMARY CARE PHYSICIAN REPORT IS CONFIDENTIAL AND NOT TO BE RELEASED WITHOUT AUTHORIZATION
== END 2024-07-10 09:52 | disposition home or self-care (01) ==
LOC: ED 18:57 → MS 19:00 → ED 21:24 → MS 21:24
PROVIDERS: Family Medicine; ADMIT Colon & Rectal Surgery; ATTEND Colon & Rectal Surgery
PROC: 0DTJ0ZZ Resection of Appendix, Open Approach (ICD-10-PCS; principal; 2024-07-09 11:15)
DX: K35.80 Unspecified acute appendicitis (principal); F84.5 Asperger's syndrome; Z79.899 Other long term (current) drug therapy; J45.909 Unspecified asthma, uncomplicated
CPT/HCPCS: 00840; 36415; 74177; 80053; 83690; 83735; 85025; 88304; 96361; 96366; 96372; 96375; 96376; 99285-25; A9270; G0378; J0330; J0696; J1100; J1650; J1885; J2250; J2405; J2470; J2704; J2765; J3010; J3475; J3490; J7030; J7121; Q9967